=== PATIENT | male | born 1980 | race Caucasian/White ===

== ENCOUNTER 2017-04-05 13:49 | Emergency (ER) | END 2017-04-05 21:50 | disposition home or self-care (01) ==

== ENCOUNTER 2017-04-11 18:30 | Inpatient (IN) | END 2017-04-14 11:30 | disposition home or self-care (01) | DRG 669 ==

== ENCOUNTER 2018-01-01 05:17 | Emergency (ER) | END 2018-01-01 08:47 | disposition home or self-care (01) ==